=== PATIENT | male | born 1985 ===

== ENCOUNTER 2017-01-15 01:28 | Observation (INO) | payer MEDICAID ==
--- NOTE | 2017-01-15 02:20 | ED PDOC ---
HPI: Psych/Substance Abuse Time Seen by Provider: 01/15/17 02:12 Chief Complaint (Provider): substance abuse History Per: Patient, EMS Additional Complaint(s): 31-year-old male presents to emergency department with substance abuse. Patient admits to taking 5 ecstasy pills this evening and his family called police because he was acting very paranoid. The patient denies use of any other drugs and upon arrival he offers no acute complaints. She denies chest pain, shortness of breath or dyspnea on exertion, he denies any nausea or vomiting, no headache or dizziness. Past Medical History Reviewed: Historical Data, Nursing Documentation, Vital Signs - Medical History PMH: Asthma - Family History Family History: States: No Known Family Hx - Living Arrangements Living Arrangements: With Family - Social History Current smoker - smoking cessation education provided: Yes Alcohol: Social Drugs: Cannabis, Other (ecstacy) - Home Medications Home Medications: Ambulatory Orders Medication Instructions Recorded Albuterol 0.083% [Albuterol 3 ml IH QID PRN #50 neb 11/06/16 Sulfate 3 Ml] Albuterol HFA [Ventolin HFA 90 2 puff IH [id number] #1 puff 11/06/16 mcg/actuation (8 g)] Prednisone [Deltasone] 20 mg PO DAILY #5 tablet 11/06/16 - Allergies Allergies/Adverse Reactions: Allergies Allergy/AdvReac Type Severity Reaction Status Date / Time No Known Allergies Allergy Verified 01/15/17 03:01 Review of Systems ROS Statement: Except As Marked, All Systems Reviewed And Found Negative Cardiovascular: Negative for: Chest Pain Gastrointestinal: Negative for: Nausea, Vomiting Neurological: Negative for: Headache, Dizziness Psych: Positive for: Other (substance abuse) Physical Exam - Reviewed Nursing Documentation Reviewed: Yes Vital Signs Reviewed: Yes - Physical Exam Appears: Positive for: Well, Non-toxic, No Acute Distress Head Exam: Positive for: ATRAUMATIC Skin: Negative for: Rash Eye Exam: Positive for: Normal appearance Cardiovascular/Chest: Positive for: Regular Rate, Rhythm Respiratory: Positive for: Normal Breath Sounds Neurologic/Psych: Positive for: Alert, Oriented, Gait (steady). Negative for: Aphasia, Facial Droop Medical Decision Making Medical Decision Makin-year-old male here for eval of substance abuse. Patient is ambulatory with steady gait, he is awake and alert, he offers no acute complaints. Patient tried to contact his family but he was told that nobody would come to pick him up. Plan: ED observation Glucose POC: 96 ED OBSERVATION Date of observation admission: 01/15/17 Time of observation admission: 02:22 - Observation admission statement Patient is being placed in observation because:: substance abuse - Goals of Observation Goals of observation are:: Monitor patient pending sobriety - Progress Note Progress Note: 01/15/17 02:44 Patient became increasingly combative, tried to elope from the ED. He was placed in 4 point restraints and was medicated with 2 mg IM Ativan and 5 mg IM Haldol 01/15/17 04:15 Patient is resting comfortably, vital signs stable. 01/15/17 04:34 Patient is awake and alert, repeat vitals are within normal limits. Patient has steady gait, stable for discharge Disposition - Clinical Impression Clinical Impression: Substance abuse - Patient ED Disposition Is Patient to be Admitted: No Counseled Patient/Family Regarding: Diagnosis, Need For Followup - Disposition Disposition: Routine/Home Disposition Time: 04:34 Condition: STABLE
[2017-01-15 02:22] VITALS: BMI 27.0
[2017-01-15 03:10] VITALS: O2SAT 97
[2017-01-15 04:34] VITALS: BP 115/66; PULSE 73; RESP 17; TEMP 98.3
== END 2017-01-15 04:37 | disposition home or self-care (01) ==
LOC: H.ER 01:28 → H.EROBSV 02:22
PROVIDERS: ADMIT Emergency Medicine; ATTEND Emergency Medicine
DX: J45.909 Unspecified asthma, uncomplicated (principal); F17.200 Nicotine dependence, unspecified, uncomplicated
CPT/HCPCS: 82948; 96372; 99283; G0378; J1630; J2060

== ENCOUNTER 2017-01-20 19:21 | Observation (INO) | payer MEDICAID ==
[2017-01-20 19:21] VITALS: BMI 27.0
[2017-01-20 19:27] VITALS: TEMP 98.1; O2SAT 100
[2017-01-20] MEDS ORDERED: Sodium Chloride 0.9% 1,000 ML IV STA (20:18)
[2017-01-20 20:50] LABS: BASO # 0.1 K/uL (0.0-0.2); BASO % 1.1 % (0.0-2.0); EOS # 0.4 K/uL (0.0-0.7); EOS % 2.7 % (0.0-4.0); HEMATOCRIT 45.6 % (35.0-51.0); LYMPH # 3.1 K/uL (1.0-4.3); LYMPH % 22.7 % (20.0-40.0); MEAN CELL VOLUME 85.9 fl (80.0-94.0); MEAN CORPUSCULAR HEMOGLOBIN 29.2 pg (27.0-31.0); MEAN PLATELET VOLUME 7.4 fl (7.2-11.7); MONO # 1.1 K/uL (0.0-0.8); MONO % 7.7 % (0.0-10.0); NEUT # 9.1 K/uL (1.8-7.0); NEUT % 65.8 % (50.0-75.0); RED CELL DISTRIBUTION WIDTH 13.4 % (11.5-14.5); WHITE BLOOD COUNT 13.7 K/uL (4.8-10.8)
[2017-01-20 21:03] LABS: ALB/GLOB RATIO 1.5 (1.0-2.1); ALCOHOL SERUM < 10 mg/dl (0-10); ALKALINE PHOSPHATASE 64 U/L (38-126); ALT/SGPT 81 U/L (21-72); AST/SGOT 40 U/L (17-59); BILIRUBIN,TOTAL 0.8 mg/dl (0.2-1.3); BLOOD UREA NITROGEN 14 mg/dl (9-20); CALCIUM 10.1 mg/dL (8.4-10.2); CARBON DIOXIDE 26 mmol/L (22-30); CHLORIDE 99 mmol/L (98-107); GFR AFRICAN-AMERICAN > 60; GLUCOSE,RANDOM 94 mg/dL (75-110); MAGNESIUM 2.1 MG/DL (1.6-2.3); POTASSIUM 4.1 MMOL/L (3.6-5.0); SODIUM 141 mmol/l (132-148); TOTAL PROTEIN 8.4 G/DL (6.3-8.2)
--- NOTE | 2017-01-20 21:29 | ED PDOC ---
HPI: Psych/Substance Abuse Time Seen by Provider: 01/20/17 19:55 Chief Complaint (Nursing): Substance Abuse Chief Complaint (Provider): Substance Abuse History Per: Patient History/Exam Limitations: no limitations Onset/Duration Of Symptoms: Hrs (x6) Current Symptoms Are (Timing): Still Present Additional Complaint(s): Jeremiah Abreu is a 31 year old male with previous medical history of substance abuse, who presents to the emergency department for an evaluation of anxiety associated with paranoia and restlessness status post ingesting 2 tablets of ecstasy 6 hours prior to arrival. Denied nausea, vomiting, chest pain, shortness of breath, auditory and visual hallucinations, suicidal and homicidal ideation, ingesting alcohol or other drugs tonight. PMD: Noel Ortega MD Past Medical History Reviewed: Historical Data, Nursing Documentation, Vital Signs Vital Signs: Last Vital Signs Temp 98.1 F 01/20/17 19:24 Pulse 93 H 01/20/17 19:24 Resp 16 01/20/17 19:24 BP 148/109 H 01/20/17 19:24 Pulse Ox 100 01/20/17 19:24 - Medical History PMH: Asthma - Surgical History Surgical History: No Surg Hx - Family History Family History: States: Hypertension - Social History Current smoker - smoking cessation education provided: Yes Ex-Smoker (has not smoked in the last 12 months): No Alcohol: Occasional Drugs: Other (ecstasy abuse) - Home Medications Home Medications: Ambulatory Orders Medication Instructions Recorded Albuterol 0.083% [Albuterol 3 ml IH QID PRN #50 neb 11/06/16 Sulfate 3 Ml] Albuterol HFA [Ventolin HFA 90 2 puff IH [id number] #1 puff 11/06/16 mcg/actuation (8 g)] Prednisone [Deltasone] 20 mg PO DAILY #5 tablet 11/06/16 - Allergies Allergies/Adverse Reactions: Allergies Allergy/AdvReac Type Severity Reaction Status Date / Time No Known Allergies Allergy Verified 01/15/17 03:01 Review of Systems ROS Statement: Except As Marked, All Systems Reviewed And Found Negative Cardiovascular: Negative for: Chest Pain Respiratory: Negative for: Shortness of Breath Gastrointestinal: Negative for: Nausea, Vomiting Psych: Positive for: Anxiety (and paranoia/restlessness). Negative for: Suicidal ideation (or homicidal ideation), Other (auditory and visual hallucinations) Physical Exam - Reviewed Nursing Documentation Reviewed: Yes Vital Signs Reviewed: Yes - Physical Exam Appears: Positive for: Uncomfortable, In Acute Distress (psychiatric distress) Head Exam: Positive for: ATRAUMATIC, NORMOCEPHALIC Skin: Positive for: Warm, Dry Eye Exam: Positive for: EOMI, PERRL ENT: Positive for: Other (tacky mucuc membranes). Negative for: Pharyngeal Erythema, Tonsillar Exudate Neck: Positive for: Painless ROM, Supple Cardiovascular/Chest: Positive for: Regular Rate, Rhythm, Chest Non Tender Respiratory: Positive for: Normal Breath Sounds. Negative for: Respiratory Distress Gastrointestinal/Abdominal: Positive for: Soft. Negative for: Tenderness Back: Positive for: Normal Inspection. Negative for: Decreased ROM Extremity: Positive for: Normal ROM. Negative for: Deformity Lymphatic: Negative for: Adenopathy Neurologic/Psych: Positive for: Alert, Mood/Affect (anxious, paranoid). Negative for: Motor/Sensory Deficits - Laboratory Results Result Diagrams: 01/20/17 20:44 01/20/17 20:44 - ECG O2 Sat by Pulse Oximetry: 100 (RA) Pulse Ox Interpretation: Normal - Critical Care Total Time (In Min): 30 Documented Critical Care: Time excludes all time spent performint seperately billable procedures Medical Decision Making Medical Decision Making: Initial Impression: Substance abuse, paranoid thought Initial Plan: * Drug screen, urine * Urine dipstick * Valium 5mg PO (patient declined) * NS 1,000ml IV per 1,000mls/hr Time: 2129 --Considerable time discussing concerns with pt and he seems to have poor insight into the affects of his drug abuse or the severity of his paranoia. He also appears overly paranoid relative to drugs he claims to have taken. Pt became progressively more paranoid in ER, thinking multiple people in the ER are being aggressive to him. Continuing to decline any valium. Offered continued observation or discharge to recover at home, but he progressed with his paranoia and started to say that people outside were going to shoot him and attempting to call police to tell them that he wasn't safe. Would not leave ER reporting he was too afraid but also would not stay in room. Roaming around ER hallway just repeating he does not feel safe and that people were out to get him. Pt needed to be medicated for psychosis and restrained for his safety. Scribe Attestation: Documented by Kymberly Dunbar, acting as a scribe for Barbara Romo MD. Provider Scribe Attestation: All medical record entries made by the Scribe were at my direction and personally dictated by me. I have reviewed the chart and agree that the record accurately reflects my personal performance of the history, physical exam, medical decision making, and the department course for this patient. I have also personally directed, reviewed, and agree with the discharge instructions and disposition. Disposition - Clinical Impression Clinical Impression: Substance abuse - Patient ED Disposition Is Patient to be Admitted: No Doctor Will See Patient In The: Office Counseled Patient/Family Regarding: Diagnosis - Disposition Disposition: Transfer of Care Disposition Time: 20:30 Condition: STABLE Patient Signed Over To: Teofilo Mckee Handoff Comments: Pending sobriety and psych eval
--- NOTE | 2017-01-21 00:44 | ED PDOC ---
- Laboratory Results Result Diagrams: 01/20/17 20:44 01/20/17 20:44 - ECG O2 Sat by Pulse Oximetry: 100 (RA) Pulse Ox Interpretation: Normal Medical Decision Making Medical Decision Making: Time: 0:00 --Patient is signed out to me by Dr. Barbara Romo. --Patient is pending clinical sobriety and crisis evaluation. *See ED-OBS for further documentation. Scribe Attestation: Documented by Matthew Callahan, acting as a scribe for Teofilo Mckee MD Provider Scribe Attestation: All medical record entries made by the Scribe were at my direction and personally dictated by me. I have reviewed the chart and agree that the record accurately reflects my personal performance of the history, physical exam, medical decision making, and the department course for this patient. I have also personally directed, reviewed, and agree with the discharge instructions and disposition. Disposition Counseled Patient/Family Regarding: Studies Performed, Diagnosis, Need For Followup - Clinical Impression Clinical Impression: Substance abuse - POA Present On Arrival: None - Disposition Disposition: Routine/Home Disposition Time: 22:35 Condition: STABLE ED OBSERVATION Date of observation admission: 01/20/17 Time of observation admission: 22:35 - Observation admission statement Patient is being placed in observation because:: Paranoid psychosis and substance abuse - Goals of Observation Goals of observation are:: Clinical sobriety and crisis evaluation - Progress Note Progress Note: 01/21/17 00:00 --Patient is resting. Vitals are stable. Time: 1:30 --Patient is currently resting with stable vitals. Time: 02:40 --Restraints have been released. Time: 3:00 --Patient is calm, resting, and has stable vitals. Time: 4:30 --Patient is resting comfortably and vitals are stable. Time: 6:00 --Patient is currently resting with stable vitals Time: 6:15 --Patient was evaluated by crisis and deemed stable for discharge. --Patient is alert, awake, and oriented x3 with a steady gait and fluent speech. Clinical Impression: Substance Abuse
[2017-01-21 06:12] VITALS: BP 117/66; PULSE 76; RESP 18
== END 2017-01-21 06:16 | disposition home or self-care (01) ==
LOC: H.ER 19:21 → H.EROBSV 22:35
PROVIDERS: ADMIT Emergency Medicine; ATTEND Emergency Medicine
DX: F22 Delusional disorders (principal); F19.10 Other psychoactive substance abuse, uncomplicated; F17.200 Nicotine dependence, unspecified, uncomplicated; F41.9 Anxiety disorder, unspecified; R45.1 Restlessness and agitation; I10 Essential (primary) hypertension; J45.909 Unspecified asthma, uncomplicated
CPT/HCPCS: 80053; 80320; 80324; 80345; 80346; 80349; 80353; 80358; 80361; 83735; 83992; 84100; 85025; 96360; 96372; 99283; G0378; J1630; J2060; J7040

== ENCOUNTER 2017-01-25 21:00 | Observation (INO) | payer MEDICAID ==
[2017-01-25 21:00] VITALS: BMI 27.0
[2017-01-25 21:10] VITALS: TEMP 98.4; O2SAT 100
--- NOTE | 2017-01-25 21:31 | ED PDOC ---
HPI: Psych/Substance Abuse Time Seen by Provider: 01/25/17 21:14 Chief Complaint (Nursing): Substance Abuse Chief Complaint (Provider): substance abuse History Per: Patient, Family History/Exam Limitations: no limitations Onset/Duration Of Symptoms: Days Current Symptoms Are (Timing): Still Present Additional History Per: Patient, Family Additional Complaint(s): 31 y/o male history of ectasy abuse presents with mother for eval. Patient states he took a total of 3 ectasy tablets today, was staying at a hotel to try and calm himself down and called his mother to pick him up and she brought him here. Patient states he feels slightly paranoid, but not more than previous visit, states he will cooperate because he does not want to be restrained and medicated. Denies acute medical or psychiatric complaints. Past Medical History Vital Signs: Last Vital Signs Temp 98.4 F 01/25/17 21:06 Pulse 139 H 01/25/17 21:06 Resp 18 01/25/17 21:06 BP 153/115 H 01/25/17 21:06 Pulse Ox 100 01/25/17 21:06 - Medical History PMH: Asthma Denies: Diabetes, Hepatitis, HIV, HTN, Seizures, Sexually Transmitted Disease - Surgical History Surgical History: No Surg Hx - Family History Family History: States: Hypertension - Home Medications Home Medications: Ambulatory Orders Medication Instructions Recorded Albuterol 0.083% [Albuterol 3 ml IH QID PRN #50 neb 11/06/16 Sulfate 3 Ml] Albuterol HFA [Ventolin HFA 90 2 puff IH [id number] #1 puff 11/06/16 mcg/actuation (8 g)] Prednisone [Deltasone] 20 mg PO DAILY #5 tablet 11/06/16 - Allergies Allergies/Adverse Reactions: Allergies Allergy/AdvReac Type Severity Reaction Status Date / Time No Known Allergies Allergy Verified 01/15/17 03:01 Review of Systems ROS Statement: Except As Marked, All Systems Reviewed And Found Negative Physical Exam - Reviewed Nursing Documentation Reviewed: Yes Vital Signs Reviewed: Yes - Physical Exam Appears: Positive for: Well, Non-toxic, No Acute Distress (slightly anxious/ paranoid) Head Exam: Positive for: ATRAUMATIC, NORMAL INSPECTION, NORMOCEPHALIC Skin: Positive for: Normal Color Eye Exam: Positive for: Normal appearance ENT: Positive for: Normal ENT Inspection Cardiovascular/Chest: Positive for: Regular Rate, Rhythm Respiratory: Positive for: Normal Breath Sounds Gastrointestinal/Abdominal: Positive for: Normal Exam Back: Positive for: Normal Inspection Extremity: Positive for: Normal ROM Neurologic/Psych: Positive for: Alert, Oriented - Laboratory Results Result Diagrams: 01/26/17 01:15 01/26/17 01:15 - ECG O2 Sat by Pulse Oximetry: 100 - Progress ED Course And Treament: accucheck, valium PO ED OBSERVATION Discharge: Yes Date of observation admission: 01/26/17 Time of observation admission: 00:00 - Observation admission statement Patient is being placed in observation because:: substance abuse, tachycardia - Goals of Observation Goals of observation are:: administer IV fluids, anti-anxiety medications, monitor HR on monitor - Progress Note Progress Note: 01/26/17 00:00 Patient states he still feels anxious/paranoid, will give more 1mg Ativan 1:00 Patient still feels anxious/paranoid, will give Haldol IM and order labs 01/26/17 01:59 Patient states he is feeling better and wants to go home. Vitals improved. Elevated WBC likely secondary to acute agitation. patient educated on findings, advised follow up PMD/[facility]. Return to ED for worsening/concerning symptoms. Disposition - Clinical Impression Clinical Impression: Substance abuse, Leukocytosis - Patient ED Disposition Is Patient to be Admitted: No Counseled Patient/Family Regarding: Studies Performed, Diagnosis, Need For Followup - Disposition Disposition: Routine/Home Disposition Time: 02:00 Condition: IMPROVED
[2017-01-25] MEDS ORDERED: Sodium Chloride 0.9% 1,000 ML IV STA (22:27)
[2017-01-26 01:35] LABS: BASO # 0.2 K/uL (0.0-0.2); BASO % 1.1 % (0.0-2.0); EOS # 0.2 K/uL (0.0-0.7); EOS % 0.9 % (0.0-4.0); HEMATOCRIT 43.3 % (35.0-51.0); LYMPH # 3.3 K/uL (1.0-4.3); LYMPH % 18.3 % (20.0-40.0); MEAN CELL VOLUME 86.2 fl (80.0-94.0); MEAN CORPUSCULAR HEMOGLOBIN 28.6 pg (27.0-31.0); MEAN CORPUSCULAR HGB CONC 33.2 g/dL (33.0-37.0); MEAN PLATELET VOLUME 7.7 fl (7.2-11.7); MONO # 1.3 K/uL (0.0-0.8); MONO % 7.2 % (0.0-10.0); NEUT % 72.5 % (50.0-75.0); RED CELL DISTRIBUTION WIDTH 13.4 % (11.5-14.5)
[2017-01-26 01:52] LABS: ALB/GLOB RATIO 1.6 (1.0-2.1); ALCOHOL SERUM < 10 mg/dl (0-10); ALKALINE PHOSPHATASE 54 U/L (38-126); ALT/SGPT 59 U/L (21-72); AST/SGOT 32 U/L (17-59); BILIRUBIN,TOTAL 0.4 mg/dl (0.2-1.3); BLOOD UREA NITROGEN 11 mg/dl (9-20); CARBON DIOXIDE 22 mmol/L (22-30); CHLORIDE 104 mmol/L (98-107); GFR AFRICAN-AMERICAN > 60; GLUCOSE,RANDOM 95 mg/dL (75-110); SODIUM 143 mmol/l (132-148); TOTAL PROTEIN 7.6 G/DL (6.3-8.2)
[2017-01-26 03:15] VITALS: BP 128/76; PULSE 99; RESP 19
--- NOTE | 2017-01-26 09:13 | CARD ---
APPROVED REPORT EKG Measurement Heart [id number] <Conclusion> Sinus tachycardia Possible Left atrial enlargement Borderline ECG
== END 2017-01-26 02:20 | disposition home or self-care (01) ==
LOC: H.ER 21:00 → H.EROBSV 01-26
PROVIDERS: ADMIT Emergency Medicine; ATTEND Emergency Medicine
DX: F15.10 Other stimulant abuse, uncomplicated (principal); D72.829 Elevated white blood cell count, unspecified; J45.909 Unspecified asthma, uncomplicated
CPT/HCPCS: 36415; 80053; 80320; 82550; 82948; 85025; 93005; 96372; 99282; G0378; J1630; J2060; J7040

== ENCOUNTER 2017-02-07 02:00 | Emergency (ER) | payer MEDICAID ==
[2017-02-07 02:02] VITALS: BMI 27.0
[2017-02-07 02:16] VITALS: RESP 18; TEMP 97.8; O2SAT 99
--- NOTE | 2017-02-07 02:47 | ED PDOC ---
HPI: Psych/Substance Abuse Time Seen by Provider: 02/07/17 02:19 Chief Complaint (Nursing): Substance Abuse Chief Complaint (Provider): substance abuse History Per: Patient, Family Onset/Duration Of Symptoms: Days Current Symptoms Are (Timing): Still Present Additional History Per: Patient, Family Additional Complaint(s): 31 y/o male brought in by mother for eval of substance abuse. Mother states every time patient uses cocaine or ectasy he becomes extremely paraonid. Mother states patient woke her up around 1:30 asking to sleep with her because he didn't feel safe and noted patient to be pacing back and forth. Patient admits to using cocaine tonight. Patient denies headache, dizziness, chest pain , shortness of breath, palpitations, suicidal/homicidal ideations. Patient with multiple ED visits for same. Against Medical Advice - AMA Patient Left Against Medical Advice: The patient declines admission to the hospital and wishes to leave the Emergency Department. This action is against my medical advice. This decision was made with informed refusal. The patient was told that admission to the hospital is necessary. Explanation of the reasons why were discussed. The risks of leaving were explained to the patient and include, but are not limited to, worsening of known or currently unknown conditions, permanent disability and from undiagnosed or untreated conditions. The patient has the capacity to make this informed decision and understands my explanation of the current medical problem and risks of leaving. The patient voluntarily accepts these risks and signed an AMA form documenting our conversation. The patient was given the opportunity to ask questions and reconsider. The patient was encouraged to return to the Emergency Department at any time for further care. Past Medical History Reviewed: Historical Data, Nursing Documentation, Vital Signs Vital Signs: Last Vital Signs Temp 97.8 F 02/07/17 02:14 Pulse 144 H 02/07/17 02:14 Resp 18 02/07/17 02:14 BP 181/109 H 02/07/17 02:14 Pulse Ox 99 02/07/17 02:14 - Medical History PMH: Asthma Denies: Diabetes, Hepatitis, HIV, HTN, Seizures, Sexually Transmitted Disease - Surgical History Surgical History: No Surg Hx - Family History Family History: States: Hypertension - Home Medications Home Medications: Ambulatory Orders Medication Instructions Recorded Albuterol 0.083% [Albuterol 3 ml IH QID PRN #50 neb 11/06/16 Sulfate 3 Ml] Albuterol HFA [Ventolin HFA 90 2 puff IH [id number] #1 puff 11/06/16 mcg/actuation (8 g)] Prednisone [Deltasone] 20 mg PO DAILY #5 tablet 11/06/16 - Allergies Allergies/Adverse Reactions: Allergies Allergy/AdvReac Type Severity Reaction Status Date / Time No Known Allergies Allergy Verified 01/15/17 03:01 Review of Systems ROS Statement: Except As Marked, All Systems Reviewed And Found Negative Psych: Positive for: Psychosis Physical Exam - Reviewed Nursing Documentation Reviewed: Yes Vital Signs Reviewed: Yes - Physical Exam Appears: Positive for: Well, Non-toxic, No Acute Distress Head Exam: Positive for: ATRAUMATIC, NORMAL INSPECTION, NORMOCEPHALIC Skin: Positive for: Normal Color Eye Exam: Positive for: Normal appearance ENT: Positive for: Normal ENT Inspection, Other (xerostomia) Cardiovascular/Chest: Positive for: Tachycardia Respiratory: Positive for: Normal Breath Sounds Gastrointestinal/Abdominal: Positive for: Normal Exam Extremity: Positive for: Normal ROM Neurologic/Psych: Positive for: Alert, Oriented - ECG ECG: Positive for: Viewed By Me (reviewed by ED attending) ECG Rhythm: Positive for: Sinus Tachycardia O2 Sat by Pulse Oximetry: 99 - Progress ED Course And Treament: Ativan IM given for anxiety/agitation On re-eval, HR 115-120, BP improved. Patient remains awake, alert, oriented x3; states he wants to sign himself out. Patient demonstrates full competency in making medical decisions. Patient educated on risks of signing out. Advised to follow up PMD or return to ED for worsening/concerning symptoms. Disposition - Clinical Impression Clinical Impression: Substance abuse, Tachycardia, Left against medical advice - Disposition Disposition: Against Medical Advice Disposition Time: 04:32 Condition: STABLE Instructions: Polysubstance Abuse (ED) Forms: [employer] (Irish)
[2017-02-07 03:56] VITALS: BP 166/92
[2017-02-07 04:41] VITALS: PULSE 113
--- NOTE | 2017-02-07 12:42 | CARD ---
APPROVED REPORT EKG Measurement Heart [id number] <Conclusion> Sinus tachycardia Otherwise normal ECG
== END 2017-02-07 04:20 | disposition left against medical advice (07) ==
LOC: H.ER 02:00
DX: F14.10 Cocaine abuse, uncomplicated (principal); R00.0 Tachycardia, unspecified
CPT/HCPCS: 93005; 96372; 99285; J2060

== ENCOUNTER 2017-03-31 05:09 | Emergency (ER) | payer MEDICAID ==
[2017-03-31 05:23] VITALS: BMI 31.0
[2017-03-31 05:26] VITALS: TEMP 97.9
--- NOTE | 2017-03-31 05:56 | ED PDOC ---
HPI: Psych/Substance Abuse Time Seen by Provider: 03/31/17 05:20 Chief Complaint (Nursing): Substance Abuse Chief Complaint (Provider): Crisis evaluation, Substance abuse History Per: Patient, Family (Parents) History/Exam Limitations: no limitations Onset/Duration Of Symptoms: Days (x1) Associated Symptoms: Suicidal Thoughts, Suicidal Plan Additional Complaint(s): Jeremiah Abreu is a 31 y/o [place] male who was brought by parents for substance abuse as well as suicidal declaration. He reportedly sent a suicidal text to his brother. Patient has a history of substance abuse and has been to this ED multiple times. Patient abuses MDMA and cocaine. Admits to binge using MDMA and Klonopin for the last 2 days. He reports he last used cocaine 3 weeks ago. PMD: None Past Medical History Reviewed: Historical Data, Nursing Documentation, Vital Signs Vital Signs: Last Vital Signs Temp 97.9 F 03/31/17 05:23 Pulse 129 H 03/31/17 05:23 Resp 20 03/31/17 05:23 BP 169/105 H 03/31/17 05:23 Pulse Ox 96 03/31/17 05:23 - Medical History PMH: Anxiety ( PER PATIENT), Asthma Denies: Diabetes, Hepatitis, HIV, HTN, Chronic Kidney Disease, Seizures, Sexually Transmitted Disease Other PMH: ADHD - Family History Family History: States: Unknown Family Hx, Hypertension - Social History Current smoker - smoking cessation education provided: Yes Alcohol: Occasional Drugs: Cocaine, Other (MDMA, Klonopin) - Immunization History Hx Tetanus Toxoid Vaccination: No Hx Influenza Vaccination: No Hx Pneumococcal Vaccination: No - Home Medications Home Medications: Ambulatory Orders Medication Instructions Recorded Alprazolam [Xanax] 2 mg PO QID 03/06/17 - Allergies Allergies/Adverse Reactions: Allergies Allergy/AdvReac Type Severity Reaction Status Date / Time No Known Allergies Allergy Verified 03/31/17 05:23 Review of Systems ROS Statement: Except As Marked, All Systems Reviewed And Found Negative Psych: Positive for: Suicidal ideation, Other (Substance abuse) Physical Exam - Reviewed Nursing Documentation Reviewed: Yes Vital Signs Reviewed: Yes - Physical Exam Appears: Positive for: Non-toxic, No Acute Distress Head Exam: Positive for: ATRAUMATIC, NORMOCEPHALIC Skin: Positive for: Normal Color, Warm, Dry Eye Exam: Positive for: EOMI, Normal appearance, PERRL ENT: Positive for: Other (Poor state of hygiene) Neck: Positive for: Normal, Painless ROM, Supple Cardiovascular/Chest: Positive for: Regular Rate, Rhythm. Negative for: Murmur Respiratory: Positive for: Normal Breath Sounds. Negative for: Respiratory Distress Gastrointestinal/Abdominal: Positive for: Normal Exam, Soft. Negative for: Tenderness Back: Positive for: Normal Inspection. Negative for: L CVA Tenderness, R CVA Tenderness, Vertebral Tenderness Extremity: Positive for: Normal ROM. Negative for: Pedal Edema, Deformity Neurologic/Psych: Positive for: Alert, Oriented, Other (Appears agitated) - Laboratory Results Result Diagrams: 03/31/17 06:05 03/31/17 06:05 - ECG O2 Sat by Pulse Oximetry: 96 (RA) Pulse Ox Interpretation: Normal Medical Decision Making Medical Decision Making: Time: 5:22 Initial Impression: 31 year old male with suicidal declaration in setting of substance abuse Initial Plan: --CMP --Alcohol serum --Urine drug screen --CBC w/ differential --Accucheck --Ativan & Haldol IM --Placed on 1:1 observation --Pending crisis evaluation Time: 7:00 Patient is signed out by me to Dr. Bowman, pending clinical sobriety and crisis evaluation Scribe Attestation: Documented by Trupti Tovar, acting as a scribe for Teofilo Mckee MD Provider Scribe Attestation: All medical record entries made by the Scribe were at my direction and personally dictated by me. I have reviewed the chart and agree that the record accurately reflects my personal performance of the history, physical exam, medical decision making, and the department course for this patient. I have also personally directed, reviewed, and agree with the discharge instructions and disposition. Disposition - Clinical Impression Clinical Impression: Substance abuse - Patient ED Disposition Is Patient to be Admitted: Transfer of Care - Disposition Disposition: Transfer of Care Disposition Time: 07:00 Condition: FAIR Additional Instructions: Follow up with your PCP in 2 -3 days. Patient Signed Over To: Maria Fernanda Bowman (Pending crisis evaluation)
[2017-03-31 06:08] LABS: BASO # 0.1 K/uL (0.0-0.2); BASO % 0.8 % (0.0-2.0); EOS # 0.3 K/uL (0.0-0.7); EOS % 2.2 % (0.0-4.0); HEMATOCRIT 41.7 % (35.0-51.0); LYMPH # 2.4 K/uL (1.0-4.3); LYMPH % 17.3 % (20.0-40.0); MEAN CELL VOLUME 86.4 fl (80.0-94.0); MEAN CORPUSCULAR HEMOGLOBIN 28.3 pg (27.0-31.0); MEAN CORPUSCULAR HGB CONC 32.7 g/dL (33.0-37.0); MEAN PLATELET VOLUME 7.1 fl (7.2-11.7); MONO # 1.2 K/uL (0.0-0.8); MONO % 9.1 % (0.0-10.0); NEUT # 9.6 K/uL (1.8-7.0); NEUT % 70.6 % (50.0-75.0); RED CELL DISTRIBUTION WIDTH 14.3 % (11.5-14.5); WHITE BLOOD COUNT 13.6 K/uL (4.8-10.8)
[2017-03-31 06:13] VITALS: RESP 18
[2017-03-31 06:25] LABS: ALB/GLOB RATIO 1.4 (1.0-2.1); ALCOHOL SERUM < 10 mg/dl (0-10); ALKALINE PHOSPHATASE 61 U/L (38-126); ALT/SGPT 118 U/L (21-72); AST/SGOT 46 U/L (17-59); BILIRUBIN,TOTAL 0.7 mg/dl (0.2-1.3); BLOOD UREA NITROGEN 14 mg/dl (9-20); CALCIUM 9.1 mg/dL (8.4-10.2); CARBON DIOXIDE 25 mmol/L (22-30); CHLORIDE 105 mmol/L (98-107); GFR AFRICAN-AMERICAN > 60; GLUCOSE,RANDOM 104 mg/dL (75-110); POTASSIUM 3.9 MMOL/L (3.6-5.0); SODIUM 142 mmol/l (132-148); TOTAL PROTEIN 7.9 G/DL (6.3-8.2)
[2017-03-31 06:44] VITALS: PULSE 86
--- NOTE | 2017-03-31 07:11 | ED PDOC ---
- Laboratory Results Result Diagrams: 03/31/17 06:05 03/31/17 06:05 - ECG O2 Sat by Pulse Oximetry: 94 Medical Decision Making Medical Decision Making: Receiving sign out: Patient signed out to me by Dr. Mckee at 0700 pending crisis evaluation. Scribe Attestation: Documented by Love Mendez acting as a scribe for Maria Fernanda Bowman MD. Provider Attestation: All medical record entries made by the Scribe were at my direction and personally dictated by me. I have reviewed the chart and agree that the record accurately reflects my personal performance of the history, physical exam, medical decision making, and the department course for this patient. I have also personally directed, reviewed, and agree with the discharge instructions and disposition. Disposition - Clinical Impression Clinical Impression: Substance abuse - Disposition Referrals: [facility] [Outside] Condition: GOOD Additional Instructions: Follow up with your PCP in 2 -3 days. Instructions: Polysubstance Abuse (ED) Progress Note - Review of Symptoms Events since last encounter: Time: 1005 Patient seen evaluated by crisis team. Patient stable for discharge home with diagnosis of substance abuse per Dr. Sheets.
[2017-03-31 10:18] VITALS: BP 134/78
[2017-04-01 04:45] VITALS: O2SAT 96
== END 2017-03-31 10:18 | disposition home or self-care (01) ==
LOC: H.ER 05:09
DX: F19.10 Other psychoactive substance abuse, uncomplicated (principal); R45.851 Suicidal ideations; F41.9 Anxiety disorder, unspecified; F90.9 Attention-deficit hyperactivity disorder, unspecified type; J45.909 Unspecified asthma, uncomplicated; F17.200 Nicotine dependence, unspecified, uncomplicated
CPT/HCPCS: 80053; 80320; 80324; 80345; 80346; 80349; 80353; 80358; 80361; 82948; 83992; 85025; 96372; 99284; J1630; J2060

== ENCOUNTER 2017-05-13 15:39 | Emergency (ER) | payer MEDICAID ==
[2017-05-13 15:39] VITALS: BMI 31.0
[2017-05-13 16:10] VITALS: TEMP 98
--- NOTE | 2017-05-13 17:05 | ED PDOC ---
HPI: Psych/Substance Abuse Time Seen by Provider: 05/13/17 16:23 Chief Complaint (Nursing): Substance Abuse Chief Complaint (Provider): cocaine use History Per: Patient, Family (mother) History/Exam Limitations: no limitations Onset/Duration Of Symptoms: Sudden Onset Current Symptoms Are (Timing): Still Present Modifying Factor(s): Cocaine Severity: Mild Associated Symptoms: Anxiety, Paranoia Involuntary Hold By: Emergency Physician Additional History Per: Patient, Prior Records Additional Complaint(s): 31yo male hx prior substance abuse, recently sober for 7wks presents s/p cocaine use now with paranoia. Per mom used approx 1gm. Patient denies chest pain, only notes paranoia and anxiety. Uses klonopin to sleep, in past used [facility] and PCP, none today. Denies suicidal thoughts, states use was for recreation. Past Medical History Reviewed: Historical Data, Nursing Documentation, Vital Signs Vital Signs: Last Vital Signs Temp 98.0 F 05/13/17 16:09 Pulse 144 H 05/13/17 16:09 Resp 20 05/13/17 16:09 BP 180/99 H 05/13/17 16:09 Pulse Ox 96 05/13/17 16:09 - Medical History PMH: Anxiety ( PER PATIENT), Asthma Denies: Diabetes, Hepatitis, HIV, HTN, Chronic Kidney Disease, Seizures, Sexually Transmitted Disease - Family History Family History: States: Unknown Family Hx, Hypertension - Immunization History Hx Tetanus Toxoid Vaccination: No Hx Influenza Vaccination: No Hx Pneumococcal Vaccination: No - Home Medications Home Medications: Ambulatory Orders Medication Instructions Recorded Alprazolam [Xanax] 2 mg PO QID 03/06/17 - Allergies Allergies/Adverse Reactions: Allergies Allergy/AdvReac Type Severity Reaction Status Date / Time No Known Allergies Allergy Verified 04/04/17 17:04 Review of Systems ROS Statement: Except As Marked, All Systems Reviewed And Found Negative Constitutional: Negative for: Fever, Chills Cardiovascular: Positive for: Palpitations. Negative for: Chest Pain Respiratory: Negative for: Shortness of Breath Gastrointestinal: Negative for: Abdominal Pain Genitourinary Male: Negative for: Dysuria Musculoskeletal: Negative for: Neck Pain Neurological: Negative for: Weakness, Numbness, Headache Psych: Positive for: Anxiety Physical Exam - Reviewed Nursing Documentation Reviewed: Yes Vital Signs Reviewed: Yes - Physical Exam Appears: Positive for: Well, Non-toxic, No Acute Distress Head Exam: Positive for: ATRAUMATIC, NORMAL INSPECTION, NORMOCEPHALIC Skin: Positive for: Normal Color, Warm, DRY Eye Exam: Positive for: Normal appearance, EOMI, Other (+ mydriasis b/l) ENT: Positive for: Normal ENT Inspection Neck: Positive for: Normal, Painless ROM Cardiovascular/Chest: Positive for: Regular Rate, Rhythm, Tachycardia Respiratory: Positive for: CNT, Normal Breath Sounds Gastrointestinal/Abdominal: Positive for: Bowel Sounds, Soft. Negative for: Tenderness Back: Positive for: Normal Inspection Extremity: Positive for: Normal ROM Neurologic/Psych: Positive for: Alert, Oriented, Mood/Affect (anxious poor insight). Negative for: Motor/Sensory Deficits - Laboratory Results Result Diagrams: 05/13/17 17:17 05/13/17 17:17 - ECG O2 Sat by Pulse Oximetry: 96 Medical Decision Making Medical Decision Making: workup for cocaine abuse initiated Ativan IV ordered w cardiac monitoring, labs/trop crisis eval ordered. Pt denies suicidal thoughts but feels paranoid approx 615p crisis cleared patient for discharge. offered voluntary admit but refused. does not meet criteria for involuntary admit. 645p does not want to stay in ED longer. HR 120. Ativan last given >60min prior. Understands risks of leaving AMA including heart attack, stroke, heart failure/ heart damage, loss of life, disability or other yet unforseen complication. Mother is an RN, attempted to convince him to stay also, but he wants to leave. He is AAox3, clear speech, stable gait, non-hallucinatory and cooperative. Is able to make decisions for self and while at increased risk of complications given known persistent drug use, cannot hold against will in ED. Signed AMA witnessed Coni HOBSON/. Disposition - Clinical Impression Clinical Impression: Cocaine abuse, Left against medical advice, Tachycardia - Patient ED Disposition Is Patient to be Admitted: No Counseled Patient/Family Regarding: Studies Performed, Diagnosis - Disposition Referrals: [facility] [Outside] [facility] [Outside] Disposition: Against Medical Advice Disposition Time: 18:50 Condition: FAIR Additional Instructions: You refused hospitalization or further testing including repeat bloodwork to assure you did not have a heart attack due to cocaine abuse. AVOID DRUG USE RETURN TO ER FOR ANY CONCERN FOR SELF. Instructions: Cocaine Abuse (ED), Against Medical Advice (ED) Forms: [employer] (Tunisian)
--- NOTE | 2017-05-13 17:21 | RAD ---
HISTORY: SOB COMPARISON: No prior. FINDINGS: LUNGS: No active pulmonary disease. PLEURA: No significant pleural effusion identified, no pneumothorax apparent. CARDIOVASCULAR: Normal. OSSEOUS STRUCTURES: No significant abnormalities. VISUALIZED UPPER ABDOMEN: Normal. OTHER FINDINGS: None. IMPRESSION: No active disease.
[2017-05-13 17:46] LABS: PARTIAL THROMBOPLASTIN TIME 35.9 Seconds (25.6-37.1); PROTHROMBIN TIME 11.1 Seconds (9.8-13.1)
[2017-05-13 17:50] LABS: BASO # 0.1 K/uL (0.0-0.2); BASO % 0.8 % (0.0-2.0); EOS # 0.1 K/uL (0.0-0.7); EOS % 0.9 % (0.0-4.0); HEMOGLOBIN 15.2 g/dL (12.0-18.0); LYMPH # 2.2 K/uL (1.0-4.3); LYMPH % 14.6 % (20.0-40.0); MEAN CORPUSCULAR HEMOGLOBIN 28.6 pg (27.0-31.0); MEAN CORPUSCULAR HGB CONC 32.9 g/dL (33.0-37.0); MEAN PLATELET VOLUME 7.5 fl (7.2-11.7); MONO # 0.9 K/uL (0.0-0.8); MONO % 6.1 % (0.0-10.0); NEUT # 11.8 K/uL (1.8-7.0); NEUT % 77.6 % (50.0-75.0); NRBC % 0.1 % (0.0-0.0); RBC 5.3 Mil/uL (4.40-5.90); RED CELL DISTRIBUTION WIDTH 13.6 % (11.5-14.5); WHITE BLOOD COUNT 15.2 K/uL (4.8-10.8)
[2017-05-13 18:15] LABS: ALB/GLOB RATIO 1.4 (1.0-2.1); ALBUMIN 5.2 g/dL (3.5-5.0); ALT/SGPT 52 U/L (21-72); AST/SGOT 48 U/L (17-59); BLOOD UREA NITROGEN 13 mg/dl (9-20); CALCIUM 9.7 mg/dL (8.4-10.2); GFR AFRICAN-AMERICAN > 60; GFR NON-AFRICAN AMERICAN > 60
[2017-05-13 18:30] LABS: BARBITURATES, UR NEGATIVE (NEGATIVE); OPIATES, UR NEGATIVE (NEGATIVE); PHENCYCLIDINE, UR NEGATIVE (NEGATIVE)
[2017-05-13 18:33] LABS: BENZODIAZEPINES, UR POSITIVE (NEGATIVE)
[2017-05-13 19:10] VITALS: BP 147/83; PULSE 120; RESP 18; O2SAT 99
== END 2017-05-13 19:10 | disposition left against medical advice (07) ==
LOC: H.ER 15:39
DX: F14.10 Cocaine abuse, uncomplicated (principal); R00.0 Tachycardia, unspecified; F41.9 Anxiety disorder, unspecified; J45.909 Unspecified asthma, uncomplicated
CPT/HCPCS: 71045; 80053; 80320; 80324; 80345; 80346; 80349; 80353; 80358; 80361; 83992; 84484; 85025; 85610; 85730; 96374; 96376; 99283; J2060

== ENCOUNTER 2017-05-19 09:14 | Emergency (ER) | payer MEDICAID ==
[2017-05-19 09:14] VITALS: BMI 31.0
[2017-05-19 09:23] VITALS: TEMP 97.4; O2SAT 98
[2017-05-19 09:39] VITALS: BP 135/83; PULSE 101; RESP 21
--- NOTE | 2017-05-19 09:47 | ED PDOC ---
HPI: Seizure Time Seen by Provider: 05/19/17 09:18 Chief Complaint (Nursing): Seizure Chief Complaint (Provider): Seizure History Per: Patient, Family (mother) History/Exam Limitations: no limitations Recent Seizure Activity Began: Just Before Arrival Number Of Seizures: One Length Of Seizures (Duration): Unknown Quality Of Seizure: Generalized Associated Symptoms: Injury As A Result Of Seizure Activity (head and right shoulder). denies: Bit Tongue, Incontinence Of Urine, Incontinence Of Stool Post-ictal Period: Yes Additional Complaint(s): Jeremiah Abreu is a 31 year old male, with a past history of cocaine and benzodiazepine abuse, who was brought to the emergency department by mother for a witnessed generalized seizure with foaming at mouth onset prior to arrival. Unknown duration of seizure followed by a post-ictal period. Mother denies any bowel or bladder incontinence. She states patient fell to the floor and sustained an injury to the head as well as right shoulder. No further medical complaints. PMD: None provided. Past Medical History Reviewed: Historical Data, Nursing Documentation, Vital Signs Vital Signs: Last Vital Signs Temp 97.4 F L 05/19/17 09:23 Pulse 101 H 05/19/17 09:33 Resp 21 05/19/17 09:33 BP 135/83 05/19/17 09:33 Pulse Ox 98 05/19/17 11:00 - Medical History PMH: Anxiety ( PER PATIENT), Asthma Denies: Diabetes, Hepatitis, HIV, HTN, Chronic Kidney Disease, Seizures, Sexually Transmitted Disease - Surgical History Surgical History: No Surg Hx - Family History Family History: States: Unknown Family Hx, Hypertension - Social History Ex-Smoker (has not smoked in the last 12 months): Yes Alcohol: None Drugs: Cocaine - Immunization History Hx Tetanus Toxoid Vaccination: No Hx Influenza Vaccination: No Hx Pneumococcal Vaccination: No - Home Medications Home Medications: Ambulatory Orders Medication Instructions Recorded Alprazolam [Xanax] 2 mg PO QID 03/06/17 - Allergies Allergies/Adverse Reactions: Allergies Allergy/AdvReac Type Severity Reaction Status Date / Time No Known Allergies Allergy Verified 04/04/17 17:04 Review of Systems ROS Statement: Except As Marked, All Systems Reviewed And Found Negative Musculoskeletal: Positive for: Shoulder Pain (right shoulder injury), Other ( head injury) Neurological: Positive for: Seizures Physical Exam - Reviewed Nursing Documentation Reviewed: Yes Vital Signs Reviewed: Yes - Physical Exam Appears: Positive for: Non-toxic Head Exam: Negative for: ATRAUMATIC (erythema to left temporal area. No palpable fracture) Skin: Positive for: Normal Color, Warm, Dry Eye Exam: Positive for: Normal appearance, EOMI, PERRL ENT: Positive for: Normal ENT Inspection (Mouth no lesion) Neck: Positive for: Painless ROM, Supple Cardiovascular/Chest: Positive for: Regular Rate, Rhythm. Negative for: Murmur Respiratory: Positive for: Normal Breath Sounds (clear b/l ). Negative for: Respiratory Distress Gastrointestinal/Abdominal: Positive for: Normal Exam, Soft. Negative for: Tenderness Back: Positive for: Normal Inspection. Negative for: L CVA Tenderness, R CVA Tenderness, Vertebral Tenderness, Other (No deformity) Extremity: Positive for: Normal ROM (Right shoulder limited by pain). Negative for: Deformity (right shoulder) Neurologic/Psych: Positive for: Alert (awake), Oriented (x3). Negative for: Motor/Sensory Deficits, Other (no focal deficits) - Laboratory Results Result Diagrams: 05/19/17 09:55 05/19/17 09:55 - ECG O2 Sat by Pulse Oximetry: 98 (RA) Pulse Ox Interpretation: Normal Medical Decision Making Medical Decision Making: Initial Plan: --Head w/o contrast [CT] --EKG --Alcohol serum --Comp Metabolic Pnael --Drug screen, urine --Urine dipstick --CBC w/ differential --Shoulder right [RAD] --reevaluation 10:[address] FINDINGS: HEMORRHAGE: No intracranial hemorrhage. BRAIN: No mass effect or edema. No atrophy or chronic microvascular ischemic changes. VENTRICLES: Unremarkable. No hydrocephalus. CALVARIUM: Unremarkable. PARANASAL SINUSES: Unremarkable as visualized. No significant inflammatory changes. MASTOID AIR CELLS: Unremarkable as visualized. No inflammatory changes. OTHER FINDINGS: None. IMPRESSION: No acute intracranial pathology. Advised 24 hr obs for seizure unkown etiology. Discussed possible causes including epilepsy, drug induceed/withdrawal and meningitis. Advised risks include recurrent seizures, meningitis and Scribe Attestation: Documented by Allan Rojas, acting as a scribe for Yobany Brown MD Provider Scribe Attestation: All medical record entries made by the Scribe were at my direction and personally dictated by me. I have reviewed the chart and agree that the record accurately reflects my personal performance of the history, physical exam, medical decision making, and the department course for this patient. I have also personally directed, reviewed, and agree with the discharge instructions and disposition. Disposition - Clinical Impression Clinical Impression: Generalized seizure, Leukocytosis - Patient ED Disposition Is Patient to be Admitted: No Counseled Patient/Family Regarding: Studies Performed, Diagnosis, Need For Followup, Rx Given - Disposition Referrals: Fuad Mcconnell MD [Medical Doctor] - Disposition: Against Medical Advice Disposition Time: 11:12 Condition: FAIR Instructions: New-Onset Seizure in Adults (ED) Forms: [employer] (Gabonese)
[2017-05-19 10:15] LABS: BASO # 0.2 K/uL (0.0-0.2); BASO % 0.6 % (0.0-2.0); EOS # 0.3 K/uL (0.0-0.7); EOS % 1.3 % (0.0-4.0); HEMOGLOBIN 14.9 g/dL (12.0-18.0); LYMPH # 2.4 K/uL (1.0-4.3); LYMPH % 9.5 % (20.0-40.0); MEAN CELL VOLUME 86.1 fl (80.0-94.0); MEAN CORPUSCULAR HEMOGLOBIN 28.4 pg (27.0-31.0); MEAN PLATELET VOLUME 7.3 fl (7.2-11.7); MONO # 1.5 K/uL (0.0-0.8); MONO % 5.8 % (0.0-10.0); NEUT # 20.8 K/uL (1.8-7.0); NEUT % 82.8 % (50.0-75.0); NRBC % 0.2 % (0.0-0.0); PLATELET COUNT 443 K/uL (130-400); RBC 5.27 Mil/uL (4.40-5.90); RED CELL DISTRIBUTION WIDTH 13.5 % (11.5-14.5); WHITE BLOOD COUNT 25.2 K/uL (4.8-10.8)
[2017-05-19 10:32] LABS: ALB/GLOB RATIO 1.3 (1.0-2.1); ALT/SGPT 74 U/L (21-72); AST/SGOT 34 U/L (17-59); BLOOD UREA NITROGEN 13 mg/dl (9-20); CALCIUM 9.9 mg/dL (8.4-10.2); GFR AFRICAN-AMERICAN > 60; GFR NON-AFRICAN AMERICAN > 60
--- NOTE | 2017-05-19 10:34 | CT ---
PROCEDURE: CT HEAD WITHOUT CONTRAST. HISTORY: r/o bleed COMPARISON: None available. TECHNIQUE: Axial computed tomography images were obtained through the head/brain without intravenous contrast. Radiation dose: Total exam DLP = 921.4 mGy-cm. This CT exam was performed using one or more of the following dose reduction techniques: Automated exposure control, adjustment of the mA and/or kV according to patient size, and/or use of iterative reconstruction technique. FINDINGS: HEMORRHAGE: No intracranial hemorrhage. BRAIN: No mass effect or edema. No atrophy or chronic microvascular ischemic changes. VENTRICLES: Unremarkable. No hydrocephalus. CALVARIUM: Unremarkable. PARANASAL SINUSES: Unremarkable as visualized. No significant inflammatory changes. MASTOID AIR CELLS: Unremarkable as visualized. No inflammatory changes. OTHER FINDINGS: None. IMPRESSION: No acute intracranial pathology.
--- NOTE | 2017-05-19 11:18 | CARD ---
APPROVED REPORT EKG Measurement Heart [id number] <Conclusion> Normal sinus rhythm Normal ECG
[2017-05-19 11:21] LABS: EOSINOPHIL 3 % (0-7); LYMPHOCYTE 7 % (20-50); MONOCYTE 5 % (0-10); NEUTROPHIL 85 % (42-75); TOTAL CELLS COUNTED 100
--- NOTE | 2017-05-19 11:22 | RAD ---
PROCEDURE: Radiographs of the Right Shoulder HISTORY: trauma COMPARISON: No prior. FINDINGS: BONES: Normal. No fracture. JOINTS: Normal. Glenohumeral and acromioclavicular joints preserved. No osteoarthritis. SOFT TISSUES: Normal. OTHER FINDINGS: None. IMPRESSION: Normal radiographs of the right shoulder.
[2017-05-19 11:24] LABS: ANISOCYTOSIS SLIGHT; HYPOCHROMIC SLIGHT; LARGE PLATELETS PRESENT; MICROCYTOSIS SLIGHT; PLATELET ESTIMATE SLIGHTLY INCREASED (NORMAL); TEARDROP CELLS SLIGHT
[2017-05-19 11:59] LABS: BARBITURATES, UR NEGATIVE (NEGATIVE); BENZODIAZEPINES, UR NEGATIVE (NEGATIVE); OPIATES, UR NEGATIVE (NEGATIVE); PHENCYCLIDINE, UR NEGATIVE (NEGATIVE)
== END 2017-05-19 11:25 | disposition left against medical advice (07) ==
LOC: H.ER 09:14
DX: R56.9 Unspecified convulsions (principal); S09.90XA Unspecified injury of head, initial encounter; S49.92XA Unspecified injury of left shoulder and upper arm, initial encounter; W19.XXXA Unspecified fall, initial encounter; Y92.89 Other specified places as the place of occurrence of the external cause; D72.829 Elevated white blood cell count, unspecified; F41.9 Anxiety disorder, unspecified; J45.909 Unspecified asthma, uncomplicated
CPT/HCPCS: 70450; 73030; 80053; 80320; 80324; 80345; 80346; 80349; 80353; 80358; 80361; 83992; 85025; 93005; 96374; 99285; J1885

== ENCOUNTER 2017-08-12 17:10 | Emergency (ER) | payer MEDICAID ==
[2017-08-12 17:11] VITALS: BMI 31.0
[2017-08-12] MEDS ORDERED: Sodium Chloride 0.9% 1,000 ML IV STA (17:23)
--- NOTE | 2017-08-12 17:27 | ED PDOC ---
HPI: Psych/Substance Abuse Time Seen by Provider: 08/12/17 17:14 Chief Complaint (Nursing): Substance Abuse Chief Complaint (Provider): ecstacy use History Per: Patient, EMS History/Exam Limitations: no limitations Onset/Duration Of Symptoms: Hrs Current Symptoms Are (Timing): Still Present Suicide/Self Injury Attempted (Context): None Modifying Factor(s): Alcohol, Other (Ecstasy) Severity: None Pain Scale Rating Of: 0 Involuntary Hold By: None Additional History Per: Other Additional Complaint(s): 31 year old male with a past medical history of asthma is brought into the emergency department by EMS for substance abuse. The patient states that he consumed 5 pills of ecstasy a half hour ago and also consumed alcohol. He also reports that immediately after consuming the ecstasy he became very paranoid and began to have palpitations. Denies abdominal pain, nausea, vomiting, diarrhea, chest pain, shortness of breath, cough, congestion. Denies HI/SI ideation. Past Medical History Reviewed: Historical Data, Nursing Documentation, Vital Signs Vital Signs: Last Vital Signs Temp 101.2 F H 08/12/17 17:12 Pulse 170 H 08/12/17 17:12 Resp 16 08/12/17 17:12 BP 154/96 H 08/12/17 17:12 Pulse Ox 96 08/12/17 17:12 - Medical History PMH: Anxiety ( PER PATIENT), Asthma Denies: Diabetes, Hepatitis, HIV, HTN, Chronic Kidney Disease, Seizures, Sexually Transmitted Disease - Family History Family History: States: Unknown Family Hx, Hypertension - Living Arrangements Living Arrangements: With Family - Social History Alcohol: Occasional Drugs: Other - Immunization History Hx Tetanus Toxoid Vaccination: No Hx Influenza Vaccination: No Hx Pneumococcal Vaccination: No - Home Medications Home Medications: Ambulatory Orders Medication Instructions Recorded Alprazolam [Xanax] 2 mg PO QID 03/06/17 - Allergies Allergies/Adverse Reactions: Allergies Allergy/AdvReac Type Severity Reaction Status Date / Time No Known Allergies Allergy Verified 08/12/17 17:12 Review of Systems ROS Statement: Except As Marked, All Systems Reviewed And Found Negative Constitutional: Positive for: Fever, Sweats Cardiovascular: Positive for: Palpitations. Negative for: Chest Pain Respiratory: Negative for: Shortness of Breath Gastrointestinal: Negative for: Nausea, Vomiting, Abdominal Pain, Diarrhea Neurological: Negative for: Dizziness Psych: Positive for: Psychosis Physical Exam - Reviewed Nursing Documentation Reviewed: Yes Vital Signs Reviewed: Yes - Physical Exam Appears: Positive for: Uncomfortable Head Exam: Positive for: ATRAUMATIC, NORMAL INSPECTION, NORMOCEPHALIC Skin: Positive for: Normal Color, Warm, Dry. Negative for: Rash Eye Exam: Positive for: EOMI, PERRL. Negative for: Normal appearance (Dilated pupils b/l 3+) ENT: Negative for: Normal ENT Inspection (dry mouth; dry lips), Nasal Congestion , Tonsillar Exudate, Tonsillar Swelling Neck: Positive for: Normal, Painless ROM, Supple Cardiovascular/Chest: Positive for: Chest Non Tender, Tachycardia Respiratory: Positive for: Normal Breath Sounds. Negative for: Wheezing, Respiratory Distress Gastrointestinal/Abdominal: Positive for: Normal Exam, Bowel Sounds, Soft. Negative for: Tenderness, Mass, Guarding, Rebound Back: Positive for: Normal Inspection. Negative for: L CVA Tenderness, R CVA Tenderness Extremity: Positive for: Normal ROM. Negative for: Tenderness, Deformity, Swelling Neurologic/Psych: Positive for: Alert, purse maker II-XII. Negative for: Motor/Sensory Deficits, Aphasia - Laboratory Results Result Diagrams: 08/12/17 17:40 08/12/17 17:31 - ECG ECG: Positive for: Interpreted By Me, Viewed By Me Interpretation Of Abn EKG: svt Interpretation Of ECG: ekg 2 tachy mild. 104. O2 Sat by Pulse Oximetry: 96 - Progress ED Course And Treament: 182: Mother at bedside. Is a nurse. Pt. has had abuse hx frequently and relapse today after 3 months of being sober. Understands current plan and situation. Agrees with plan. Pt. in SVT. Has hx of coccaine use. No drug screen back. 2mg ativan given with no hr response. Will consider adenosine 6mg after 2 more mg of ativan. No beta or calcium channel blockers due to hx of coccaine use. 1913: HR went down to 150s. Pt. agitated and threat to self and staff. Mom states haldol works and agrees to give. Will hold adenosine at this time. 1953: Haldol was given and pt. HR came down to 104. Sinus tachy borderline. 9: Mom at bedside. HR significant improvement and at 100 now. Pt. cooperative and communicating appropriately. AAOx3. Tolerated PO. Ambulated with no issues. Pt. to fu with pcp. Mom to take responsibility. - Critical Care Total Time (In Min): 30 Documented Critical Care: Time excludes all time spent performint seperately billable procedures Medical Decision Making Medical Decision Makin Initial Impression 31 y/o male presenting with substance overdose Initial Plan: * EKG * Acetaminophen * Alcohol Serum * CMP * Drug Screen * Magnesium * Phosphorous * Salicylate * Troponin * Udip * CBC * Accucheck * Ativan 2mg IVP * NS 1000 ml IV 1000 mls/hr * 1:1 OBS * POC * Reevaluation 1824 Spoke with poison control who recommends symptomatic treatment as well as IV fluids, basic blood work and ice packs to help cool the body down. No use of tylenol or antipyretics. Ativan as needed. Documented by Rani Dumont acting as a scribe for Bernabe Wright MD. All medical record entries made by the Scribe were at my direction and personally dictated by me. I have reviewed the chart and agree that the record accurately reflects my personal performance of the history, physical exam, medical decision making, and the department course for this patient. I have also personally directed, reviewed, and agree with the discharge instructions and disposition. Disposition - Clinical Impression Clinical Impression: Drug abuse, SVT (supraventricular tachycardia) - Patient ED Disposition Is Patient to be Admitted: No Counseled Patient/Family Regarding: Studies Performed, Diagnosis, Need For Followup - Disposition Referrals: [facility] [Outside] - 08/14/17 Disposition: Routine/Home Disposition Time: 23:24 Condition: STABLE Additional Instructions: Return if not better in 3 days. Instructions: Paroxysmal Supraventricular Tachycardia (DC), Drug Abuse and Drug Addiction (DC)
[2017-08-12 17:51] LABS: BASO # 0.1 K/uL (0.0-0.2); BASO % 0.8 % (0.0-2.0); EOS # 0.1 K/uL (0.0-0.7); EOS % 0.5 % (0.0-4.0); HEMOGLOBIN 15.2 g/dL (12.0-18.0); LYMPH # 2.6 K/uL (1.0-4.3); LYMPH % 13.7 % (20.0-40.0); MEAN CORPUSCULAR HEMOGLOBIN 28.5 pg (27.0-31.0); MEAN CORPUSCULAR HGB CONC 33.6 g/dL (33.0-37.0); MEAN PLATELET VOLUME 8.1 fl (7.2-11.7); MONO # 1.3 K/uL (0.0-0.8); NEUT # 14.6 K/uL (1.8-7.0); NRBC % 0.1 % (0.0-0.0); RBC 5.33 Mil/uL (4.40-5.90); RED CELL DISTRIBUTION WIDTH 13.1 % (11.5-14.5); WHITE BLOOD COUNT 18.7 K/uL (4.8-10.8)
[2017-08-12 17:53] LABS: ALB/GLOB RATIO 1.3 (1.0-2.1); ALBUMIN 5.2 g/dL (3.5-5.0); ALT/SGPT 115 U/L (21-72); AST/SGOT 252 U/L (17-59); BLOOD UREA NITROGEN 11 mg/dl (9-20); CALCIUM 10.6 mg/dL (8.4-10.2); GFR AFRICAN-AMERICAN > 60; GFR NON-AFRICAN AMERICAN > 60
[2017-08-12 17:54] LABS: ACETAMINOPHEN < 10.0 ug/ml (10.0-30.0); SALICYLATE < 1.0 mg/dl
[2017-08-12 19:05] VITALS: RESP 18
[2017-08-12 20:25] VITALS: PULSE 96
[2017-08-12 20:39] VITALS: BP 148/92; TEMP 98.2
[2017-08-12 23:18] VITALS: O2SAT 96
[2017-08-12 23:57] LABS: BARBITURATES, UR NEGATIVE (NEGATIVE); BENZODIAZEPINES, UR POSITIVE (NEGATIVE); OPIATES, UR NEGATIVE (NEGATIVE); PHENCYCLIDINE, UR NEGATIVE (NEGATIVE)
--- NOTE | 2017-08-13 09:35 | CARD ---
APPROVED REPORT EKG Measurement Heart [id number] <Conclusion> Sinus tachycardia Otherwise normal ECG
--- NOTE | 2017-08-13 09:36 | CARD ---
APPROVED REPORT EKG Measurement Heart [id number] <Conclusion> Supraventricular tachycardia Otherwise normal ECG
== END 2017-08-12 23:39 | disposition home or self-care (01) ==
LOC: H.ER 17:10
DX: F19.10 Other psychoactive substance abuse, uncomplicated (principal); I47.1 Supraventricular tachycardia; F41.9 Anxiety disorder, unspecified; J45.909 Unspecified asthma, uncomplicated
CPT/HCPCS: 80053; 80320; 80324; 80329; 80345; 80346; 80349; 80353; 80358; 80361; 82948; 83735; 83992; 84100; 84484; 85025; 93005; 96361; 96372; 96374; 96376; 99284; J1630; J2060; J7040

== ENCOUNTER 2017-10-30 22:04 | Emergency (ER) | payer MEDICAID ==
[2017-10-30 22:04] VITALS: BMI 31.0
[2017-10-30 22:37] VITALS: RESP 20
[2017-10-30] MEDS ORDERED: Sodium Chloride 0.9% 1,000 ML IV STA (22:49)
[2017-10-30 23:20] LABS: BASO # 0.1 K/uL (0.0-0.2); BASO % 0.8 % (0.0-2.0); EOS # 0.1 K/uL (0.0-0.7); EOS % 0.4 % (0.0-4.0); HEMOGLOBIN 14.5 g/dL (12.0-18.0); LYMPH # 1.8 K/uL (1.0-4.3); MEAN CELL VOLUME 87.2 fl (80.0-94.0); MEAN CORPUSCULAR HEMOGLOBIN 29.6 pg (27.0-31.0); MEAN PLATELET VOLUME 7.8 fl (7.2-11.7); MONO # 0.8 K/uL (0.0-0.8); MONO % 4.5 % (0.0-10.0); NEUT # 15.6 K/uL (1.8-7.0); NEUT % 84.3 % (50.0-75.0); RBC 4.89 Mil/uL (4.40-5.90); RED CELL DISTRIBUTION WIDTH 13.9 % (11.5-14.5); WHITE BLOOD COUNT 18.5 K/uL (4.8-10.8)
[2017-10-30 23:27] LABS: ALB/GLOB RATIO 1.2 (1.0-2.1); ALBUMIN 4.7 g/dL (3.5-5.0); ALT/SGPT 44 U/L (21-72); AST/SGOT 33 U/L (17-59); BLOOD UREA NITROGEN 9 mg/dl (9-20); CALCIUM 9.7 mg/dL (8.4-10.2); GFR AFRICAN-AMERICAN > 60; GFR NON-AFRICAN AMERICAN > 60
--- NOTE | 2017-10-30 23:35 | ED PDOC ---
HPI: Psych/Substance Abuse Time Seen by Provider: 10/30/17 22:30 Chief Complaint (Nursing): Substance Abuse Chief Complaint (Provider): Substance Abuse History Per: Patient, EMS, Family (mother) History/Exam Limitations: no limitations Onset/Duration Of Symptoms: Other (prior to arrival) Current Symptoms Are (Timing): Still Present Additional Complaint(s): 31 y/o [place] male with a PMHx of substance abuse (ecstasy) well known to this provider for multiple ED visits. Patient was found at a local [facility] acting erratically and EMS was called who brought the patient to the ED for evaluation. Patient admits to taking 3 tablets of ecstasy today. He denies any homicidal or suicidal ideations. Patient denies any medical complaints at this time. Patient's mother states the patient had been clean of ecstasy for 3 weeks, but relapsed 1.5 weeks ago. PMD: None Past Medical History Reviewed: Historical Data, Nursing Documentation, Vital Signs Vital Signs: Last Vital Signs Temp 98 F 10/30/17 22:33 Pulse 160 H 10/30/17 22:33 Resp 20 10/30/17 22:33 BP 163/103 H 10/30/17 22:33 Pulse Ox 99 10/30/17 22:33 - Medical History PMH: Anxiety ( PER PATIENT), Asthma Denies: HIV, HTN, Chronic Kidney Disease, Seizures, Sexually Transmitted Disease - Surgical History Surgical History: No Surg Hx - Family History Family History: States: Hypertension - Social History Current smoker - smoking cessation education provided: No Alcohol: None Drugs: Methamphetamine (Ecstasy) - Immunization History Hx Tetanus Toxoid Vaccination: No Hx Influenza Vaccination: No Hx Pneumococcal Vaccination: No - Home Medications Home Medications: Ambulatory Orders Medication Instructions Recorded traZODone 10/09/17 - Allergies Allergies/Adverse Reactions: Allergies Allergy/AdvReac Type Severity Reaction Status Date / Time No Known Allergies Allergy Verified 10/09/17 00:54 Review of Systems ROS Statement: Except As Marked, All Systems Reviewed And Found Negative Psych: Negative for: Suicidal ideation (or homicidal) Physical Exam - Reviewed Nursing Documentation Reviewed: Yes Vital Signs Reviewed: Yes - Physical Exam Appears: Positive for: Non-toxic, No Acute Distress Head Exam: Positive for: ATRAUMATIC, NORMAL INSPECTION, NORMOCEPHALIC Skin: Positive for: Normal Color, Warm, Dry. Negative for: Rash Eye Exam: Positive for: EOMI, Normal appearance, PERRL Neck: Positive for: Normal, Painless ROM, Supple Cardiovascular/Chest: Positive for: Tachycardia Respiratory: Positive for: Normal Breath Sounds. Negative for: Respiratory Distress Gastrointestinal/Abdominal: Positive for: Normal Exam, Soft. Negative for: Tenderness Back: Positive for: Normal Inspection. Negative for: L CVA Tenderness, R CVA Tenderness, Vertebral Tenderness Extremity: Positive for: Normal ROM. Negative for: Pedal Edema, Deformity Neurologic/Psych: Positive for: Alert, Oriented, Mood/Affect (flat). Negative for: Motor/Sensory Deficits - Laboratory Results Result Diagrams: 10/30/17 23:05 10/30/17 23:05 - ECG O2 Sat by Pulse Oximetry: 99 (RA) Pulse Ox Interpretation: Normal Medical Decision Making Medical Decision Makin:48 Impression: 31 y/o male with acute substance abuse Plan: -EKG -Alcohol serum -CMP -Urine drug screen -Urine dipstick -CBC -Glucose, POC -Ativan 2mg IVP -1LNS -Heplock -Accucheck -Urinalysis -Reevaluation 01:37 Labs reviewed and found significant for elevated white count and UDS positive for cocaine. No fever or systemic signs of infection noted. Patient and his mother both requested that he be discharged home. Patient will be discharged home. ----- Scribe Attestation: Documented by Vel Benavides, acting as a scribe for Teofilo Mckee MD. Provider Scribe Attestation: All medical record entries made by the Scribe were at my direction and personally dictated by me. I have reviewed the chart and agree that the record accurately reflects my personal performance of the history, physical exam, medical decision making, and the department course for this patient. I have also personally directed, reviewed, and agree with the discharge instructions and disposition. Disposition - Clinical Impression Clinical Impression: Cocaine abuse, Polysubstance abuse - Patient ED Disposition Is Patient to be Admitted: No Counseled Patient/Family Regarding: Studies Performed, Diagnosis, Need For Followup - Disposition Disposition: Routine/Home Disposition Time: 01:37 Condition: STABLE Instructions: Drug Abuse Treatment, Polysubstance Abuse Forms: [employer] (Guatemalan)
[2017-10-30 23:55] LABS: SQUAMOUS EPITHIAL < 1 /hpf (0-5); URINE BILIRUBIN NEGATIVE (NEGATIVE); URINE BLOOD NEGATIVE (NEGATIVE); URINE CLARITY CLEAR (Clear); URINE COLOR YELLOW (YELLOW); URINE GLUCOSE (UA) NEG (Normal); URINE LEUKOCYTE ESTERASE NEG Leu/uL (Negative); URINE PROTEIN NEGATIVE (NEGATIVE); URINE UROBILINOGEN 0.2-1.0 mg/dL (0.2-1.0)
[2017-10-31 00:13] LABS: BARBITURATES, UR NEGATIVE (NEGATIVE)
[2017-10-31 00:18] LABS: BENZODIAZEPINES, UR POSITIVE (NEGATIVE); OPIATES, UR NEGATIVE (NEGATIVE); PHENCYCLIDINE, UR NEGATIVE (NEGATIVE)
[2017-10-31 01:37] VITALS: O2SAT 99
[2017-10-31 01:38] VITALS: BP 139/77; PULSE 106; TEMP 98.2
--- NOTE | 2017-10-31 15:02 | CARD ---
APPROVED REPORT EKG Measurement Heart [id number] <Conclusion> Sinus tachycardia Non specific st changes noticed specially on I, AVL Anterior ischemia can not be ruled out Otherwise normal ECG
== END 2017-10-31 01:34 | disposition home or self-care (01) ==
LOC: H.ER 22:04
DX: F14.10 Cocaine abuse, uncomplicated (principal); F19.10 Other psychoactive substance abuse, uncomplicated; F41.9 Anxiety disorder, unspecified
CPT/HCPCS: 80053; 80320; 80324; 80345; 80346; 80349; 80353; 80358; 80361; 81003; 82948; 83992; 85025; 93005; 96361; 96372; 96374; 99284; J1630; J2060; J7030